=== PATIENT | female | born 1970 | race Caucasian/White ===

== ENCOUNTER 2017-01-09 02:47 | Emergency (ER) | payer SELFPAY ==
[2017-01-09 02:52] VITALS: BP 131/95; BMI 24.5
--- NOTE | 2017-01-09 03:30 | DR.GENAD ---
HPI - PCP Primary Care Physician: STANISLAW HERNANDEZ IN [place], BRIANNA NEUROLOGIST, [facility] WORK [facility] - HPI Comment HPI Comment: PATIENT HAVE HAD SEIZURE IN THE PAST. SHE ALSO HAVE CHRONIC BACK PAIN. HURTING WORSE TODAU. NO TRAUMA REPORTED. NO DYSURIA OR HEMATURIA. - Complaint/Symptoms Chief Complaint Doctors Comments: PATIENT HAD 3 SEIZURES TONIGHT AND HAVE BACK PAIN. Chief Complaint:: "I HAVE HAD 3 SEIZURES TONIGHT, AND I HAVE CHRONIC BACK PAIN. " - Nurses notes reviewed Nurses Notes Review: Yes - Source History Provided: Patient, EMS - Mode of Arrival Mode of Arrival: EMS - Timing Onset of Chief Complaint: 01/08/17 - Duration Duration: Since Onset Duration: Hours - Severity Severity: Moderate PMH - PMH Past Medical History: Yes Past Medical History: Seizures Past Medical History Comment: CHRONIC BACK PAIN,DDD,SCOLOSIS,BIPOLAR Past Surgical History: No - Family History History of Family Medical Conditions: No - Social History Type of Tobacco Use: Cigarettes Alcohol Use: None Do you use any recreational Drugs:: No Lives With: Alone Lives Where: Home - infectious screening Have you traveled outside the country in the last 6 months?: No Isolation: Standard ROS - Review of Systems Constitutional: No Symptoms Reported. negative: Chills, Fever Eyes: No Symptoms Reported ENTM: No Symptoms Reported Respiratoy: No Symptoms Reported Cardiovascular: No Symptoms Reported Gastrointestinal/Abdominal: Nausea, Vomiting Genitourinary: negative: Dysuria, Frequency, Hematuria Neurological: Headache, Weakness. negative: Dizziness Musculoskeletal: Muscle Pain Integumentary: No Symptoms Reported Hematologic/Lymphatic: No Symptoms Reported All Other Systems: Reviewed and Negative PE - Vital Signs Vitals: Pulse Rate 93 Respiratory Rate 16 Blood Pressure 131/95 O2 Sat by Pulse Oximetry 99 - General Limitations: No Limitations General Appearance: Alert - Head Head Exam: Normal Inspection - Eyes Eye exam: Normal Appearance - ENT ENT Exam: Normal External Ear Exam External Ear Exam: Normal External Inspection TM/Canal Exam: Bilateral Normal Nose Exam: Normal Nose Exam Mouth Exam: Normal Inspection Throat Exam: Normal Inspection - Neck Neck Exam: Normal Inspection - Chest Chest Inspection: Symmetric Chest Wall Rise - Respiratory Respiratory Exam: Normal Lung Sounds Bilat Respiratory Exam: Bilateral Clear to Auscultation - Cardiovascular Cardiovascular Exam: Regular Rate, Normal Rhythm, Normal Heart Sounds - Abdominal Exam Abdominal Exam: Normal Bowel Sounds, Soft. negative: Tenderness - Extremities Extremities Exam: Normal Inspection - Back Back Exam: Paraspinal Tenderness (LOWER BACK) - Neurologic Neurological Exam: Alert, Oriented X3, Normal Gait. negative: Motor Sensory Deficit - Psychiatric Psychiatric Exam: Anxious - Skin Skin Exam: Normal Color MDM - Differential Diagnosis Differential Diagnosis: BACK PAIN, SEIZURE DISORDER Course - Treatment Treatment: PATIENT LEFT AFTER PHYSICAL EXAMINATION. DID NOT WISH TO DO LABS. SIGN AMA. - Diagnosis Discharge Problem: Seizure Back pain Qualifiers: Back pain location: low back pain Chronicity: unspecified Back pain laterality : bilateral Sciatica presence: with sciatica Sciatica laterality: bilateral sciatica Qualified Code(s): M54.42 - Lumbago with sciatica, left side; M54.41 - Lumbago with sciatica, right side - Discharge Plan Disposition: 07 AGAINST MEDICAL ADVICE Condition: Stable - Follow ups/Referrals Follow ups/Referrals: NFD,None [Primary Care Provider] - 3 days - Instructions
== END 2017-01-09 03:38 | disposition left against medical advice (07) ==
LOC: ER 02:47
DX: R56.9 Unspecified convulsions (principal); M54.42 Lumbago with sciatica, left side; M54.41 Lumbago with sciatica, right side
CPT/HCPCS: 99281; 99282

== ENCOUNTER 2017-02-16 13:01 | Emergency (ER) | payer SELFPAY ==
[2017-02-16 13:06] VITALS: BP 119/84; BMI 25.0
--- NOTE | 2017-02-16 14:07 | DR.GENAD ---
HPI - PCP Primary Care Physician: TIM - HPI Comment HPI Comment: She is in need of pain medications - Complaint/Symptoms Chief Complaint Doctors Comments: She has chronic pain relating to injury to neck and low back. She was being taken care of at a pain clinin in [place]. She gets Dilaudid, Oxycodone and Xanax.The pain clinic was shut down recently. She found another pain provider in [place] with appt. this coming . Chief Complaint:: PT STATES SHE IS OUT OF HER MEDICATIONS AND SHE IS HAVING WITHDRAWL SYMPTOMS ALONG WITH SEIZURES. PT STATES HER DOCTOR WAS CLOSED DOWN AND SHE HAS A [place] WITH A NEW DOCTOR NEXT SUNDAY. - Nurses notes reviewed Nurses Notes Review: Yes - Source History Provided: Patient - Mode of Arrival Mode of Arrival: Ambulatory - Timing Onset of Chief Complaint: 02/16/17 PMH - PMH Past Medical History: Yes Past Medical History: Seizures Past Surgical History: No Surgical History: Other (Neck and Low Back pain) - Family History History of Family Medical Conditions: No - Social History Does any household member use tobacco: No Alcohol Use: None Do you use any recreational Drugs:: No Lives With: Family Lives Where: Home - infectious screening In the last 2 months have you had wt loss of >10#?: NO Have you had fever, night sweats or hemotysis?: No Have you traveled outside the country in the last 6 months?: No Isolation: Standard ROS - Review of Systems Eyes: No Symptoms Reported ENTM: No Symptoms Reported Respiratoy: No Symptoms Reported Cardiovascular: No Symptoms Reported Gastrointestinal/Abdominal: No Symptoms Reported Genitourinary: No Symptoms Reported Neurological: No Symptoms Reported Musculoskeletal: Back Pain, Neck Integumentary: No Symptoms Reported Hematologic/Lymphatic: No Symptoms Reported Endocrine: No Symptoms Reported Psychiatric: No Symptoms Reported All Other Systems: Reviewed and Negative PE - Vital Signs Vitals: Temperature 97.9 F Pulse Rate 86 Respiratory Rate 18 Blood Pressure 119/84 O2 Sat by Pulse Oximetry 98 - General Limitations: No Limitations General Appearance: Alert, In No Apparent Distress - Head Head Exam: Normal Inspection - Eyes Eye exam: Normal Appearance - ENT ENT Exam: Normal Exam External Ear Exam: Normal External Inspection TM/Canal Exam: Bilateral Normal Nose Exam: Normal Nose Exam Mouth Exam: Normal Inspection Throat Exam: Normal Inspection - Neck Neck Exam: Normal Inspection - Chest Chest Inspection: Normal Inspection - Respiratory Respiratory Exam: Normal Lung Sounds Bilat Respiratory Exam: Bilateral Clear to Auscultation - Cardiovascular Cardiovascular Exam: Regular Rate, Normal Rhythm - Abdominal Exam Abdominal Exam: Normal Inspection, Normal Bowel Sounds, Soft - Extremities Extremities Exam: Normal Inspection - Back Back Exam: Normal Inspection - Neurologic Neurological Exam: Alert, Oriented X3 - Psychiatric Psychiatric Exam: Normal Affect, Normal Mood - Skin Skin Exam: Warm, Dry, Intact, Normal Color - Diagnosis Discharge Problem: Neck pain - Discharge Plan Disposition: HOME, SELF-CARE Condition: Stable - Follow ups/Referrals Follow ups/Referrals: KEYANA DUMONT [Primary Care Provider] - 3 days - Instructions
== END 2017-02-16 14:20 | disposition home or self-care (01) ==
LOC: ER 13:10
DX: M54.2 Cervicalgia (principal)
CPT/HCPCS: 99281; 99282